=== PATIENT | male | born 1985 | race Caucasian/White ===

== ENCOUNTER 2019-01-14 05:44 | Day surgery (SDC) | payer BC ==
[~2019-01-14] VITALS: Ht 180.3 cm; Wt 70.8 kg
[~2019-01-14 05:44] MED LIST: HYDROCODONE-APA1 TAB PO
[2019-01-14 06:19] VITALS: BP 161/89; Ht 180.3 cm; Wt 70.8 kg
[2019-01-14 07:03] LABS: CALC OSMOLALITY 281 mosm/kg (275-300); CALCIUM 9.4 mg/dL (8.5-10.1); CARBON DIOXIDE 29.7 mmol/L (21.0-32.0); CHLORIDE - SERUM 102 mmol/L (98-107); CREATININE - SERUM 1.2 mg/dL (0.6-1.3); GLUCOSE 95 mg/dL (74-106); POTASSIUM - SERUM 3.9 mmol/L (3.5-5.1); SODIUM 141 mmol/L (136-145); UREA NITROGEN 15 mg/dL (7-18); eGFR NON AFRICAN AMERICAN 75 mL/min (90-120)
[2019-01-14 07:06] LABS: BASOPHILS 0.4 % (0-2); EOSINOPHILS 3.8 % (0-7); HEMATOCRIT 46.2 % (42.0-54.0); HEMOGLOBIN 16.5 g/dL (13.5-17.5); IMMATURE GRANULOCYTES 0.1 % (0-5); LYMPHOCYTES 42.8 % (15-50); MCH 30.5 pg (26.0-34.0); MCHC 35.7 g/dL (31.0-37.0); MCV 85.4 fL (80.0-100.0); MEAN PLATELET VOLUME 10.1 fL (7.4-10.4); MONOCYTES 8.7 % (2-11); NEUTROPHILS 44.2 % (40-80); RBC 5.41 10x6/uL (4.20-6.10); RDW 12.8 % (11.5-14.5); WBC 6.9 10x3/uL (4.8-10.8)
[2019-01-14 07:20] LABS: PLATELET COUNT 226 10x3/uL (130-400)
[2019-01-14] MEDS ORDERED: HYDROCODON-ACE1 EA10 PO (08:04)
--- NOTE | 2019-01-14 12:46 | NUR ---
1240 PT DRESSED. HAS AMBULATED WITHOUT PROBLEMS, STATES READY TO GO HOME DC INSTS REVIEWED VOICED UNDERSTANDING RELEASED IN WC.
--- NOTE | 2019-01-16 07:19 | OP ---
PATIENT NAME: CHERELLE ALEXANDRA MEDICAL RECORD: [id number] :89 LOCATION:DJoseOPS ADMISSION DATE: SURGEON: YANICK CHACON MD DATE OF OPERATION: 01/14/2019 PREOPERATIVE DIAGNOSIS: Right inguinal hernia. POSTOPERATIVE DIAGNOSIS: Right inguinal hernia. PROCEDURE: Right inguinal hernia repair with medium PHS mesh. SURGEON: Yanick Chacon MD REPORT OF PROCEDURE: The patient's right groin was prepped and draped in sterile fashion. A skin incision was made in oblique fashion just above the inguinal ligament. Electrocautery was used to dissect through the subcutaneous tissues down to the external oblique fascia. This fascia was opened up to the external ring using electrocautery. The ilioinguinal nerve was found and high ligated. We then elevated the spermatic cord and a Dorcas was placed around it. The patient had an indirect hernia defect which was dissected from the surrounding tissues. This was then opened up and high ligated and then oversewn with a running 2-0 Vicryl. We then opened up the inguinal floor and open the preperitoneal space of Retzius and a medium PHS mesh was inserted and sutured down on all 4 sides using multiple interrupted 0 Vicryls. We then irrigated out the wound and assured there was no sign of any bleeding. The external oblique fascia was closed with running 2-0 Vicryl, Patrick's was closed with interrupted 3-0 Vicryl, and the skin was closed with running subcutaneous 5-0 Monocryl. COMPLICATIONS: None. CONDITION: Stable. Total of 10 mL of 0.25% Marcaine with epinephrine was infused into the surrounding tissues and the wound was dressed appropriately. ANESTHESIA: General endotracheal and local. BLOOD LOSS: Minimal. TRANSINT:[id number] Voice Confirmation ID: [id number] DOCUMENT ID: [id number] YANICK CHACON MD at 0719 CC: LUCAS BEAL [id number] DICTATION DATE: 01/14/19 08 EYEDOTTER: 01/14/19 08 [facility] 01/14/19 [place] [address]
== END 2019-01-14 12:40 | disposition home or self-care (01) ==
LOC: D.OPS 05:44 → D.PAN 09:15 → D.OPS 09:15
PROVIDERS: ATTEND Surgery
DX: K40.90 Unilateral inguinal hernia, without obstruction or gangrene, not specified as recurrent (principal); Z01.812 Encounter for preprocedural laboratory examination